=== PATIENT | female | born 1965 | race Caucasian/White ===

== ENCOUNTER 2018-09-14 22:57 | Emergency (ER) | payer OTHER, SELFPAY ==
[2018-09-14 22:59] VITALS: BP 160/114; PULSE 99; RESP 18; TEMP 36.7; O2SAT 96; BMI 21.2
--- NOTE | 2018-09-14 23:08 | ED.VISSUMM ---
- ER Visit Summary Date of Service: 09/14/18 Chief Complaint: Leg injury History of Present Illness: The patient is a 53 F presents to the emergency department with right lower extremity injury. Patient was moving wood for her fire. She lost her paper tube cutter in a log and fell. And struck the anterior aspect of her distal right corbett. She did suffer a laceration. She did place a dressing presented here. Tetanus was greater than 10 years ago. She is on no anticoagulants. She denies other injury. She is otherwise been in her normal state of health. Physical Examination: Patient does have a 3 cm V-shaped laceration to the distal aspect of the anterior corbett. Pulses are normal. Compartments are soft. There is minimal active bleeding. Rest of exam is unremarkable. Test Results: [] Emergency Department Course and Treatment: The patient's wound was anesthetized. It was cleaned and irrigated. It was closed with 7 simple 4-0 interrupted suture. The patient tolerated this without issue. She was counseled on wound care and reasons to return. Bacitracin dressing was applied. The patient will follow-up in 10 days for suture removal or return for reevaluation if she has any increasing pain, drainage, or other symptoms. She is comfortable with this plan of care. Treatment Plan: [] Disposition: Discharge Impression: 1. 3 cm right corbett laceration with repair This note was generated with [employer] dictation software. It may contain incorrect words, spelling, and punctuation that were not noted in review of the chart prior to signing ED Disposition - Plan for ED Patient: Instructions: ED Laceration All Referrals: NOT,DEFINED [Primary Care Provider] - 10 Day for suture removal
[2018-09-14 23:26] VITALS: BP 158/106; PULSE 88; RESP 16; O2SAT 98
[2018-09-14] MEDS: Diphth,Pertuss(Acell),Tet Vac 0.5 ML Vial IM (23:29)
== END 2018-09-14 23:46 | disposition home or self-care (01) ==
LOC: ED 23:37
PROVIDERS: Emergency Provider Emergency Medicine
DX: S81.811A Laceration without foreign body, right lower leg, initial encounter (principal); W20.8XXA Other cause of strike by thrown, projected or falling object, initial encounter; Y93.89 Activity, other specified; Y92.89 Other specified places as the place of occurrence of the external cause; Y99.9 Unspecified external cause status; Z72.0 Tobacco use
CPT/HCPCS: 12002; 90471; 90715; 99283